=== PATIENT | female | born 1960 | race Caucasian/White ===

== ENCOUNTER 2024-05-12 15:59 | Inpatient (IN) | payer MEDICARE, MEDICAID, SELFPAY ==
[2024-05-12] VITALS (7 sets, daily range): BP systolic 103–139; BP diastolic 51–69; PULSE 94–125; RESP 18–24; TEMP 36.9–37.1; O2SAT 89–100; BMI 19.8; BMI 19.7
--- NOTE | 2024-05-12 16:49 | CT_ITS ---
PROCEDURE INFORMATION: Exam: CTA Chest With Contrast Exam date and time: 05/12/2024 5:58 PM Age: 63 years old Clinical indication: Injury or trauma; Fall; Blunt trauma (contusions or hematomas); Additional info: Trauma, critical injury suspected TECHNIQUE: Imaging protocol: Computed tomographic angiography of the chest with contrast. Exam focused on the arteries. 3D rendering (Not supervised by radiologist): MIP and/or 3D reconstructed images were created by the technologist. Radiation optimization: All CT scans at this facility use at least one of these dose optimization techniques: automated exposure control; mA and/or kV adjustment per patient size (includes targeted exams where dose is matched to clinical indication); or iterative reconstruction. Contrast material: ISOVUE 370; Contrast volume: 100 ml; Contrast route: INTRAVENOUS (IV); COMPARISON: CT ANGIO ABDOMEN PELVIS 05/12/2024 5:58 PM FINDINGS: Pulmonary arteries: Dilated pulmonary trunk measuring 3.2 cm which may be seen with pulmonary arterial hypertension. Breathing motion artifact limiting evaluation of segmental and subsegmental pulmonary arteries within the mid to lower lungs. Within the limits of the exam, no identifiable pulmonary arterial emboli. Aorta: Mild atherosclerosis. No aortic aneurysm. No aortic dissection. Lungs: Mild emphysema. Mild scattered peribronchovascular opacities within the right lung. No masses. Pleural spaces: Unremarkable. No pneumothorax. No pleural effusion. Heart: Cardiomegaly. Minimal pericardial effusion. Lymph nodes: Calcified subcarinal and right hilar lymph nodes. Bones/joints: Multiple old thoracic compression fractures better characterized on dedicated CT thoracic spine. Remaining bones without acute findings. Old left-sided rib fractures. Subacute or chronic proximal sternal body fracture Soft tissues: Unremarkable. IMPRESSION: 1. No acute posttraumatic findings within the chest. 2. Mild scattered peribronchovascular opacities within the right lung which may be seen with infectious or inflammatory bronchiolitis. 3. Subacute or chronic proximal sternal body fracture. Old thoracic compression fractures and left-sided rib fractures. COMMENTS: The presence of pulmonary emphysema on CT is an independent risk factor for lung cancer. In the absence of a history or active diagnosis of lung cancer, it is recommended that this patient with emphysema be evaluated for enrollment in a low dose CT lung cancer screening program.
--- NOTE | 2024-05-12 16:49 | CT_ITS ---
PROCEDURE INFORMATION: Exam: CT Cervical Spine Without Contrast Exam date and time: 05/12/2024 5:36 PM Age: 63 years old Clinical indication: Injury or trauma; Fall; Blunt trauma; Additional info: Trauma, critical injury suspected TECHNIQUE: Imaging protocol: Computed tomography of the cervical spine without contrast. Radiation optimization: All CT scans at this facility use at least one of these dose optimization techniques: automated exposure control; mA and/or kV adjustment per patient size (includes targeted exams where dose is matched to clinical indication); or iterative reconstruction. COMPARISON: CT HEAD/BRAIN WO CON 05/12/2024 5:33 PM FINDINGS: Bones: Osteopenia. Mild hypertrophic facet changes. Mastoid air cells: Left mastoiditis. Lungs: Lung apices are normal. Soft tissues: Unremarkable. IMPRESSION: 1. No evidence of acute osseous injury. 2. Left mastoiditis.
--- NOTE | 2024-05-12 16:49 | CT_ITS ---
PROCEDURE INFORMATION: Exam: CTA Neck With Contrast Exam date and time: 05/12/2024 5:50 PM Age: 63 years old Clinical indication: Injury or trauma; Fall; Blunt trauma; Head and neck; Additional info: Trauma, critical injury suspected TECHNIQUE: Imaging protocol: Computed tomographic angiography of the neck with contrast. Exam focused on the cervical segments of the vasculature. 3D rendering (Not supervised by radiologist): MIP and/or 3D reconstructed images were created by the technologist. Radiation optimization: All CT scans at this facility use at least one of these dose optimization techniques: automated exposure control; mA and/or kV adjustment per patient size (includes targeted exams where dose is matched to clinical indication); or iterative reconstruction. Contrast material: ISOVUE 370; Contrast volume: 100 ml; Contrast route: INTRAVENOUS (IV); COMPARISON: CT CERVICAL SPINE WO CON 05/12/2024 5:36 PM FINDINGS: Right common carotid artery: Mild calcific atherosclerotic disease of the right carotid bulb without stenosis. Right internal carotid artery: No stenosis of the extracranial segment. No dissection or occlusion. Right external carotid artery: No occlusion or stenosis of the origin. Left common carotid artery: Mild calcific atherosclerotic disease of the left carotid bulb without stenosis. Left internal carotid artery: No stenosis of the extracranial segment. No dissection or occlusion. Left external carotid artery: No occlusion or stenosis of the origin. Right vertebral artery: No stenosis. No dissection or occlusion. Left vertebral artery: No stenosis. No dissection or occlusion. Soft tissues: Normal. No significant soft tissue swelling. Bones/joints: No acute fracture. Lungs: Mild centrilobular emphysematous changes with an apical gradient is present. IMPRESSION: No stenosis or occlusion. REFERENCES: NASCET CRITERIA. The degree of stenosis in the cervical segment of the internal carotid artery is based on NASCET criteria. Normal is no stenosis. Mild is less than 50% stenosis. Moderate is 50-69% stenosis. Severe is 70% to 99% stenosis. Total occlusion is no detectable patent lumen.
--- NOTE | 2024-05-12 16:49 | CT_ITS ---
PROCEDURE INFORMATION: Exam: CT Thoracic Spine Without Contrast Exam date and time: 05/12/2024 5:40 PM Age: 63 years old Clinical indication: Injury or trauma; Fall; Blunt trauma (contusions or hematomas); Additional info: Trauma, critical injury suspected TECHNIQUE: Imaging protocol: Computed tomography of the thoracic spine without contrast. Radiation optimization: All CT scans at this facility use at least one of these dose optimization techniques: automated exposure control; mA and/or kV adjustment per patient size (includes targeted exams where dose is matched to clinical indication); or iterative reconstruction. COMPARISON: CT CERVICAL SPINE WO CON 05/12/2024 5:36 PM FINDINGS: Bones/joints: Chronic T7, T8 and T12 compression fractures with retropulsion measuring 3 mm at T7 and 6 mm at T12. Additional chronic appearing mild T3 and T4 superior endplate compression deformities. No acute fracture. Levoconvex curvature with the apex at T12-L1. Exaggerated thoracic hyperkyphosis centered at T11-12. Multilevel degenerative changes. No severe spinal canal stenosis. Soft tissues: Unremarkable. IMPRESSION: 1. No acute osseous findings of the thoracic spine. 2. Chronic T7, T8 and T12 compression fractures. Mild retropulsion at T7 and T12 contributing to mild spinal canal stenosis. Additional chronic appearing mild T3 and T4 superior endplate compression deformities.
--- NOTE | 2024-05-12 16:49 | CT_ITS ---
PROCEDURE INFORMATION: Exam: CT Lumbar Spine Without Contrast Exam date and time: 05/12/2024 5:45 PM Age: 63 years old Clinical indication: Injury or trauma; Fall; Blunt trauma (contusions or hematomas); Additional info: Trauma, critical injury suspected TECHNIQUE: Imaging protocol: Computed tomography of the lumbar spine without contrast. Radiation optimization: All CT scans at this facility use at least one of these dose optimization techniques: automated exposure control; mA and/or kV adjustment per patient size (includes targeted exams where dose is matched to clinical indication); or iterative reconstruction. COMPARISON: CT THORACIC SPINE WO CON 05/12/2024 5:40 PM FINDINGS: Bones/joints: Lumbar vertebrae normal in height. No acute fracture. Mild levoconvex curvature. Minimal degenerative changes. No significant neural foraminal narrowing or spinal canal stenosis. Soft tissues: Unremarkable. IMPRESSION: No acute osseous findings of the lumbar spine.
--- NOTE | 2024-05-12 16:49 | CT_ITS ---
PROCEDURE INFORMATION: Exam: CTA Abdomen and Pelvis With Contrast Exam date and time: 05/12/2024 5:58 PM Age: 63 years old Clinical indication: Injury or trauma; Fall; Blunt trauma; Lower abdominal or back area; Bilateral; Additional info: Trauma, critical injury suspected TECHNIQUE: Imaging protocol: Computed tomographic angiography of the abdomen and pelvis with contrast. Exam focused on the arteries. 3D rendering (Not supervised by radiologist): MIP and/or 3D reconstructed images were created by the technologist. Radiation optimization: All CT scans at this facility use at least one of these dose optimization techniques: automated exposure control; mA and/or kV adjustment per patient size (includes targeted exams where dose is matched to clinical indication); or iterative reconstruction. Contrast material: IOSVUE 370; Contrast volume: 100 ml; Contrast route: INTRAVENOUS (IV); COMPARISON: CT ANGIO CHEST 05/12/2024 5:58 PM FINDINGS: Aorta: [id number] atherosclerosis. No aortic aneurysm. No aortic dissection. Celiac trunk and mesenteric arteries: No occlusion or significant stenosis. Renal arteries: No occlusion or significant stenosis. Right iliac arteries: [id number] atherosclerosis. No occlusion or significant stenosis. Left iliac arteries: [id number] atherosclerosis. No occlusion or significant stenosis. Liver: Hepatomegaly No mass. Gallbladder and biliary ducts: Postsurgical changes of cholecystectomy with expected mild biliary ductal dilatation. Pancreas: Mild fatty infiltration. No mass. No ductal dilation. Spleen: Calcified granulomas. Splenomegaly. Adrenal glands: Unremarkable. No mass. Kidneys and ureters: Unremarkable. No solid mass. No hydronephrosis. Stomach and bowel: Moderate to large distal colonic and rectal stool burden which may be seen with constipation. No obstruction. No mucosal thickening. Appendix: No evidence of appendicitis. Intraperitoneal space: Unremarkable. No free air. No significant fluid collection. Lymph nodes: Unremarkable. No enlarged lymph nodes. Urinary bladder: Unremarkable. No mass. Reproductive: Unremarkable as visualized. Bones/joints: No acute fracture. See report on concurrently performed spine imaging. Soft tissues: Unremarkable. IMPRESSION: No acute posttraumatic findings within the abdomen or pelvis.
--- NOTE | 2024-05-12 16:49 | CT_ITS ---
PROCEDURE INFORMATION: Exam: CT Head Without Contrast Exam date and time: 05/12/2024 5:33 PM Age: 63 years old Clinical indication: Injury or trauma; Fall; Blunt trauma (contusions or hematomas); Additional info: Trauma, critical injury suspected TECHNIQUE: Imaging protocol: Computed tomography of the head without contrast. Radiation optimization: All CT scans at this facility use at least one of these dose optimization techniques: automated exposure control; mA and/or kV adjustment per patient size (includes targeted exams where dose is matched to clinical indication); or iterative reconstruction. COMPARISON: No relevant prior studies available. FINDINGS: Brain: Basal ganglia calcification Cerebral ventricles: No ventriculomegaly. Paranasal sinuses: Visualized sinuses are unremarkable. No fluid levels. Mastoid air cells: Visualized mastoid air cells are well aerated. Bones: Unremarkable. No acute fracture. Soft tissues: Unremarkable. IMPRESSION: No evidence of acute intracranial abnormality.
--- NOTE | 2024-05-12 16:49 | CT_ITS ---
PROCEDURE INFORMATION: Exam: CTA Head With Contrast, Arteriography Exam date and time: 05/12/2024 5:50 PM Age: 63 years old Clinical indication: Injury or trauma; Fall; Blunt trauma; Head and neck; Additional info: Trauma, critical injury suspected TECHNIQUE: Imaging protocol: Computed tomographic angiography of the head with contrast. Exam focused on the arteries. 3D rendering (Not supervised by radiologist): MIP and/or 3D reconstructed images were created by the technologist. Radiation optimization: All CT scans at this facility use at least one of these dose optimization techniques: automated exposure control; mA and/or kV adjustment per patient size (includes targeted exams where dose is matched to clinical indication); or iterative reconstruction. Contrast material: ISOVUE 370; Contrast volume: 100 ml; Contrast route: INTRAVENOUS (IV); COMPARISON: CT HEAD/BRAIN WO CON 05/12/2024 5:33 PM FINDINGS: ANTERIOR CIRCULATION: Right internal carotid artery: Mild calcific atherosclerotic disease of the right intracranial ICA resulting in moderate stenosis of the cavernous segment. Right middle cerebral artery: No occlusion or significant stenosis. No aneurysm. Right anterior cerebral artery: No occlusion or significant stenosis. No aneurysm. Left internal carotid artery: Moderate calcific atherosclerotic disease of the left intracranial ICA resulting in mild stenosis of the ophthalmic segment. Left middle cerebral artery: No occlusion or significant stenosis. No aneurysm. Left anterior cerebral artery: No occlusion or significant stenosis. No aneurysm. POSTERIOR CIRCULATION: Right vertebral artery: No occlusion or significant stenosis. No aneurysm. Left vertebral artery: No occlusion or significant stenosis. No aneurysm. Basilar artery: No occlusion or significant stenosis. No aneurysm. Right posterior cerebral artery: No occlusion or significant stenosis. No aneurysm. Left posterior cerebral artery: No occlusion or significant stenosis. No aneurysm. Brain: No definite mass, mass effect, or midline shift. Cerebral ventricles: No ventriculomegaly. Bones/joints: Unremarkable. No acute fracture. Soft tissues: Unremarkable. IMPRESSION: 1. 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 2. Moderate calcific atherosclerotic disease of the left intracranial ICA resulting in mild stenosis of the ophthalmic segment.
--- NOTE | 2024-05-12 16:52 | HMH.EDGENADL ---
Discharge Plan Disposition Patient Disposition: Admitted Referrals Follow up/Referrals: Hitesh Esparza DO [Primary Care Provider] - See instructions Clinical Impressions Clinical Impression: Altered mental status, Acute hypoxic respiratory failure, Multiple fractures of ribs, Falls frequently, Acute hyponatremia, Acute exacerbation of chronic obstructive pulmonary disease Instructions Patient Instructions: DI for Altered Mental Status Discharge ED Provider: Norberto [place] [facility] HPI General Chief complaint: Altered Mental Status Stated complaint: altered mental status Time Seen by Provider: 05/12/24 16:35 Mode of Arrival: EMS Source of Information: EMS Limitations: Altered Mental Status Description of Symptoms (Recalled from ER Triage Doc. by RN): confusion,lethargy,agitation,constipation History of Present Illness HPI narrative: Patient is a 63-year-old female presented with multiple complaints. She has a history of bipolar disorder has been off all medications for really extended period of time until she was admitted to [facility] about a month and a half ago. She was restarted on all of her medications has been on them for about a month and was discharged 1 week ago. She was doing very well according to her family members who are at the bedside until she fell 2 days ago. She went to [facility] was diagnosed with rib fractures and was discharged. She was given pain medicine unclear as to how many rib fractures she was diagnosed with or if she had any other traumatic injuries. She is not on any anticoagulants or antiplatelet agents to our knowledge. She subsequently over the last few days has had increased shortness of breath difficulty breathing changes in mental status went to her primary care doctor today was found to be hypoxic and lethargic and sent to the emergency department. She is arousable able to answer some questions tells me she has chest pain and left lateral chest wall pain. She has fallen subsequently according to her family again today and her mental status worsened after that time. She had some facial trauma from the fall as well. Related Data Allergies Allergy/AdvReac Type Severity Reaction Status Date / Time No Known Allergies Allergy Verified 05/12/24 17:21 [facility] Disclaimer: The information contained in this section may have been updated after the patient was seen, as this information can be updated by other users. Social History Smoking Status: Unknown if ever smoked alcohol intake: never current occupational status: other Travel in the last 8 weeks: None ROS Obtained: Yes All systems reviewed & no additional complaints except as documented Physical Exam General General appearance: alert and in no apparent distress Head Head exam: other (Evidence of facial trauma to the left frontal lateral aspect of the forehead) Neck Neck exam: Absent tenderness Chest Chest inspection: Present tenderness (There is significant tenderness with compression over the lateral chest wall) Respiratory Respiratory exam: Present other (Patient has prolonged expiratory phase wheezing hypoxic respiratory failure oxygen saturations 81% on room air normalized on 4 L) Cardiovascular Cardiovascular exam: Present regular rate Abdominal Exam Abdominal exam: Present soft; Absent distention or tenderness Neurological Exam Neurological exam: Present other (GCS of 14 arousable nonfocal neurologic exam disoriented to time); Absent alert or oriented X3 Medical Decision Making Tavon Inquiry Pt receiving controlled substance: No Tavon was queried for this patient: No Vital Signs: 05/12/24 15:59 05/12/24 16:06 05/12/24 16:30 Temperature 98.7 F Temperature Source Oral Pulse Rate 110 H 110 H Pulse Rate [Right] 125 H Respiratory Rate 24 Blood Pressure 109/60 L 116/51 L Blood Pressure [Right Arm] 109/60 L Blood Pressure Mean [Right Arm] 76 02 Sat by Pulse Oximetry 89 L 90 L 95 Oxygen Delivery Method Room Air Nasal Cannula Oxygen Flow Rate (LPM) 2 05/12/24 17:00 Temperature Temperature Source Pulse Rate 110 H Pulse Rate [Right] Respiratory Rate Blood Pressure 103/57 L Blood Pressure [Right Arm] Blood Pressure Mean [Right Arm] 02 Sat by Pulse Oximetry 92 L Oxygen Delivery Method Oxygen Flow Rate (LPM) Lab Data Lab results reviewed: Yes I reviewed the patient's lab results. Lab Results 05/12/24 16:01: WBC 19.3 H, RBC 3.90 L, Hgb 11.6 L, Hct 37.1, MCV 95.1, MCH 29.6, MCHC 31.1 L, RDW 16.7, Plt Count 233, MPV 7.6, Neut % (Auto) 90.0 H, Lymph % (Auto) 3.8 L, [place] % (Auto) 5.9, Eos % (Auto) 0.2, Baso % (Auto) 0.2, Neut # (Auto) 17.4 H, Lymph # (Auto) 0.7, [place] # (Auto) 1.1 H, Eos # (Auto) 0.0, Baso # (Auto) 0.0, Total Counted 100, Neutrophils % (Manual) 88 H, Lymphocytes % (Manual) 8 L, Monocytes % (Manual) 4, Platelet Estimate Normal, RBC Morphology Normal, PT 10.4, INR 0.96, APTT 28.0, Sodium 120 L, Potassium 4.9, Chloride 81 L, Carbon Dioxide 25, Anion Gap 18.9 H, BUN 36 H, Creatinine 1.50 H, Estimated Creat Clear 28, Estimated GFR 35 L, Est GFR ( Amer) 42 L, Glucose 140 H, Calcium 8.1 L, Total Bilirubin 0.5, AST 36, ALT 26, Alkaline Phosphatase 227 H, Troponin I < 0.01, Total Protein 7.2, Albumin 3.9, Globulin 3.3 H, Albumin/Globulin Ratio 1.2 05/12/24 16:10: Urine Color Dark yellow, Urine Appearance Clear, Urine pH 5.5, Ur Specific [place] 1.015, Urine Protein Negative, Urine Glucose (UA) Negative, Urine Ketones Trace, Urine Blood Negative, Urine Nitrate Negative, Urine Bilirubin 2+ A, Urine Urobilinogen 1.0, Ur Leukocyte Esterase Trace, Urine RBC None, Urine WBC Occasional, Ur Squamous Epith Cells Occasional, Urine Bacteria Trace 05/12/24 16:49: VBG Lactic Acid 1.7 05/12/24 16:50: VBG pH 7.32, VBG pCO2 49.9, VBG pO2 22.8 L, VBG HCO3 25.2, VBG Total CO2 26.8, VBG O2 Saturation 45.7 L, VBG Base Excess -0.8, VBG Lactic Acid 1.8 05/12/24 18:19: Ammonia < 9 L, SARS-CoV-2 (PCR) Not detected, Influenza A Untype (PCR) Not detected, Influenza Type B (PCR) Not detected 05/12/24 16:01 05/12/24 16:01 Orders (Tests/Meds): ED MEDICATIONS Discontinued Medications Generic Name Dose Route Start Last Admin Trade Name Freq PRN Reason Stop Dose Admin Albuterol/Ipratropium 3 ml 05/12/24 16:49 05/12/24 17:15 Ipratropium/Albuterol 3 Ml Neb IH 05/12/24 16:50 3 ml ONCE ONE Administration Lactated Ringer's 1,000 mls @ 999 mls/hr 05/12/24 17:00 05/12/24 18:16 Lactated Ringer's 1000 Ml Bag IV 05/12/24 18:00 999 mls/hr .Q1H1M SHAHRAM Administration Sodium Chloride 100 mls @ 999 mls/hr 05/12/24 17:56 05/12/24 18:42 Sod Chloride 3% 500ml Bag (Hypertonic) IV 05/12/24 18:01 999 mls/hr .Q6M ONE Administration Iopamidol 180 ml 05/12/24 18:06 05/12/24 18:08 Iopamidol-370 (76%);100ml Bottle IV 05/12/24 18:07 180 ml ONCE ONE Administration Methylprednisolone Sodium Succinate 125 mg 05/12/24 16:49 05/12/24 18:16 Methylprednisolone Sod Succ 125mg Vial IV 05/12/24 16:50 125 mg ONCE ONE Administration Sodium Chloride 10 ml 05/12/24 18:06 05/12/24 18:08 Sodium Chloride 0.9% 10ml Syr (Rad Only) IV 05/12/24 18:07 10 ml ONCE ONE Administration Sodium Chloride 50 ml 05/12/24 18:06 05/12/24 18:07 0.9 % Sodium Chloride 50 Ml Vial IV 05/12/24 18:07 50 ml ONCE ONE Administration ORDERS Category Date Time Status CT angio abdomen pelvis Stat Cat Scan 05/12/24 16:[address] angio chest - dissection Stat Cat Scan 05/12/24 16:[address] angio head Stat Cat Scan 05/12/24 16:[address] angio neck Stat Cat Scan 05/12/24 16:[address] cervical spine wo con Stat Cat Scan 05/12/24 16:[address] head/brain wo con Stat Cat Scan 05/12/24 16:[address] lumbar spine wo con Stat Cat Scan 05/12/24 16:[address] thoracic spine wo con Stat Cat Scan 05/12/24 16:49 Completed Ammonia Stat Lab 05/12/24 18:19 Completed CBC w/Auto Diff [Complete Blood Count Auto Diff] Stat Lab 05/12/24 16:01 Completed CMP [Comprehensive Metabolic Panel] Stat Lab 05/12/24 16:01 Completed Lactate Venous Stat Lab 05/12/24 16:49 Completed PT/PTT Stat Lab 05/12/24 16:01 Completed Rapid PCR Covid and Flu A/B Stat Lab 05/12/24 18:19 Completed Trop I [Troponin I] Stat Lab 05/12/24 16:01 Completed Troponin I Q3H Lab 05/12/24 20:00 Ordered Troponin I Q3H Lab 05/12/24 23:00 Ordered UA [Urinalysis and Microscopic] Stat Lab 05/12/24 16:10 Completed Blood Culture Stat Micro 05/12/24 16:10 Received Venous Blood Gas Stat RT 05/12/24 16:50 Completed Medical Decision Narrative: 63-year-old female presents today with multiple falls reported history of numerous rib fractures on the left side now with hypoxic respiratory failure and acute encephalopathy. Her change in mental status may be secondary to her new oxygen requirement and endorgan damage from possible sepsis. I suspect he may have underlying pneumonia or lung injury or pulmonary contusion with rib fractures will get full trauma scans as has fallen again and has had worsening of her mental status since that time intracranial hemorrhage certainly still on the possibility or differential. She does not have any significant pain or tenderness anywhere else on my assessment. However if she does not have a normal neurologic exam either. Will reassess after this brought and complains of workup is initiated. Reassessment 723 patient found to be profoundly hyponatremic was given hypertonic saline bolus and she has remained stable has not had any significant improvement will need continued hypertonic saline given her altered mental status. Sodium is 120. Unclear etiology at this point. CT scans performed which I first interpreted did not show any obvious traumatic abnormalities that are acute I do not see any obvious acute rib fractures may be some chronic old rib fractures and some chronic wedge fractures but she is not focally tender in that area. Overall think she is stable to be admitted to our hospital. I spoke with Dr. Ramos who is on-call for hospital medicine. She will be admitted for hypoxic respiratory failure hyponatremia probable COPD exacerbation and acute encephalopathy. Critical Care Critical Care Time Critical Care Time: Yes Attestation: On 05/12/24, the high probability of a clinically significant, sudden or life threatening deterioration of the following system(s) required my full and direct attention, intervention and personal management. The time I documented below is in addition to time spent performing reported procedures but includes the following listed in this critical care notation. Total Time Total Critical Care Time: 35
[2024-05-12 17:00] LABS: Basophils % 0.2 % (0.1-2.0); Eosinophils % 0.2 % (0.1-12.0); Hematocrit 37.1 % (37.0-47.0); Hemoglobin 11.6 g/dL (12.2-16.2); Lymphocytes # 0.7 K/mm3 (0.7-4.5); Lymphocytes % 3.8 % (10-50); Mean Corpuscular HGB Conc 31.1 g/dL (31.8-35.4); Mean Corpuscular Hemoglobin 29.6 pg (27.0-31.2); Mean Corpuscular Volume 95.1 fl (81-99); Mean Platelet Volume 7.6 fl (7.4-10.4); Monocytes # 1.1 K/mm3 (0.1-1.0); Monocytes % 5.9 % (1.7-9.3); Neutrophils # 17.4 K/mm3 (1.8-7.8); Platelet Count 233 K/mm3 (142-424); Red Cell Distribution Width 16.7 % (11.5-17.5); White Blood Count 19.3 K/mm3 (4.8-10.8)
[2024-05-12 17:04] LABS: Chloride 81 mmol/L (98-107); MANUAL DIFFERENTIAL MANUAL DIFFERENTIAL (MANUAL DIFF); Potassium 4.9 mmoL/L (3.5-5.1); Sodium 120 mmol/L (136-145)
[2024-05-12 17:06] LABS: INR 0.96 (0.9-1.1); Prothrombin Time 10.4 seconds (10.1-12.5)
[2024-05-12 17:07] LABS: Alanine Aminotransferase 26 U/L (12-78); Albumin Level 3.9 g/dl (3.5-5.0); Albumin/Globulin Ratio 1.2 (1.1-1.8); Alkaline Phosphatase 227 U/L (38-126); Anion Gap 18.9 mEq/L (5-15); Aspartate Amino Transferase 36 U/L (14-36); Bilirubin,Total 0.5 mg/dl (0.2-1.3); Blood Urea Nitrogen 36 mg/dl (7-17); Calcium 8.1 mg/dl (8.4-10.2); Carbon Dioxide 25 mmol/L (22.0-30.0); Creatinine Clearance Estimated 28 mL/min (50-200); Estimated Glomerular Filt Rate 35 ml/min (>60); GFR (African American) 42 ML/MIN (>60); Globulin 3.3 g/dL (1.3-3.2); Glucose 140 mg/dl (74-100); Total Protein,Serum 7.2 g/dl (6.3-8.2)
[2024-05-12 17:10] LABS: Microscopic, Urine URINE MICROSCOPIC (MICROSCOPIC)
[2024-05-12 17:11] LABS: Lactate Venous 1.8 mmol/L (0.4-2.0); VBG Base Excess -0.8 mmol/L (-2.4-2.3); VBG HCO3 25.2 mmol/L (23-30); VBG Oxygen Saturation 45.7 % (50-70); VBG PCO2 49.9 mmol/L (35-51); VBG PH 7.32 mmol/L (7.31-7.41); VBG PO2 22.8 mmol/L (28-40); VBG Total CO2 26.8 mmol/L (23-27)
[2024-05-12] MEDS: IPRATROPIUM/ALBUTEROL 3 ML NEB IH (17:15)
[2024-05-12 17:16] LABS: Appearance,Urine CLEAR (Clear); Blood, Urine Negative (Negative); Glucose,Urine (UA) Negative (Negative); Ketones,Urine TRACE (Negative); Leukocyte Esterase,Urine TRACE (Negative); Nitrate,Urine Negative (Negative); PH,Urine 5.5 (5.0-8.5); Protein,Urine Negative (Negative); Specific Gravity, Urine 1.015 (1.005-1.030)
[2024-05-12 17:21] LABS: Bilirubin,Urine 2+ (Negative)
[2024-05-12 17:21] LABS: Troponin I < 0.01 ng/ml (0.00-0.034)
--- NOTE | 2024-05-12 17:23 | ECG_ITS ---
APPROVED REPORT Exam: Resting ECG HR:107 bpm ECG Measurements Heart Rate 107 AXES IL 189 P 93 QRSd 83 QRS 53 QT 306 T 114 QTc 369 Conclusion SINUS TACHYCARDIA WITH OCCASIONAL SUPRAVENTRICULAR PREMATURE COMPLEXES LOW QRS VOLTAGE IN EXTREMITY LEADS [QRS DEFLECTION < 0.5 mV IN LIMB LEADS] ABNORMAL QRS-T ANGLE [QRS-T AXIS DIFFERENCE > 60] ABNORMAL ECG UNCONFIRMED REPORT Electronically signed by : Zay [place], 05/13/2024 00:21:47
[2024-05-12 17:29] LABS: Lymphocytes % 8 % (10-50); Monocytes % 4 % (2-9); Neutrophils % 88 % (42-76); Total Cells Counted 100
[2024-05-12 17:31] LABS: Color,Urine Dark Yellow (Yellow); Squamous Epithelial Cell,Urine Occasional #/hpf (0-5); WBC,Urine Occasional #/hpf (0-3)
[2024-05-12 17:31] LABS: Platelet Estimate Normal; RBC Morphology Normal
[2024-05-12 17:32] LABS: Bacteria,Urine Trace /lpf
[2024-05-12] MEDS: 0.9 % SODIUM CHLORIDE 50 ML VIAL IV (18:07)
[2024-05-12] MEDS: IOPAMIDOL-370 (76%);100ML BOTTLE 180 ML IV (18:08)
[2024-05-12] MEDS: SODIUM CHLORIDE 0.9% 10ML SYR (RAD ONLY) 10 ML IV (18:08)
[2024-05-12] MEDS: LACTATED RINGERS 1000ML 1,000 ML 999 ML IV (18:16)
[2024-05-12] MEDS: METHYLPREDNISOLONE SOD SUCC 125MG VIAL 125 MG IV (18:16)
[2024-05-12 18:26] LABS: Coronavirus 19, PCR Not Detected (NotDetected); Influenza A, PCR Not Detected (NotDetected); Influenza B, PCR Not Detected (NotDetected)
[2024-05-12 18:27] LABS: Lactate Venous 1.7 mmol/L (0.4-2.0)
[2024-05-12] MEDS: SODIUM CHLORIDE 3 % 100 ML 999 ML IV (18:42)
[2024-05-12 18:47] LABS: Ammonia < 9 umol/L (9-30)
--- NOTE | 2024-05-12 19:49 | PC.NURSE ---
Report given to JAVIER Richter
--- NOTE | 2024-05-12 20:21 | PC.NURSE ---
Patient arrived to floor via stretcher from ED at 20:10.
[2024-05-12] MEDS: BISACODYL 10MG SUPP 10 MG RC (20:47)
[2024-05-12 20:55] LABS: Basophils % 0.1 % (0.1-2.0); Eosinophils # 0.1 K/mm3 (0.0-0.4); Eosinophils % 0.4 % (0.1-12.0); Hematocrit 33.5 % (37.0-47.0); Hemoglobin 10.5 g/dL (12.2-16.2); Lymphocytes # 0.3 K/mm3 (0.7-4.5); Lymphocytes % 2.6 % (10-50); Mean Corpuscular HGB Conc 31.5 g/dL (31.8-35.4); Mean Corpuscular Hemoglobin 30.5 pg (27.0-31.2); Mean Platelet Volume 7.1 fl (7.4-10.4); Monocytes # 0.3 K/mm3 (0.1-1.0); Monocytes % 2.7 % (1.7-9.3); Neutrophils # 11.5 K/mm3 (1.8-7.8); Neutrophils % 94.2 % (37.0-80.0); Platelet Count 153 K/mm3 (142-424); Red Blood Count 3.45 M/mm3 (4.20-5.40); Red Cell Distribution Width 16.6 % (11.5-17.5); White Blood Count 12.2 K/mm3 (4.8-10.8)
[2024-05-12 21:00] LABS: Chloride 89 mmol/L (98-107); Potassium 4.3 mmoL/L (3.5-5.1); Sodium 122 mmol/L (136-145)
[2024-05-12 21:03] LABS: Alanine Aminotransferase 25 U/L (12-78); Alkaline Phosphatase 205 U/L (38-126); Anion Gap 15.3 mEq/L (5-15); Aspartate Amino Transferase 34 U/L (14-36); Bilirubin,Total 0.5 mg/dl (0.2-1.3); Blood Urea Nitrogen 28 mg/dl (7-17); Calcium 7.5 mg/dl (8.4-10.2); Carbon Dioxide 22 mmol/L (22.0-30.0); Creatinine Clearance Estimated 42 mL/min (50-200); Estimated Glomerular Filt Rate 63 ml/min (>60); GFR (African American) 76 ML/MIN (>60); Glucose 145 mg/dl (74-100)
[2024-05-12 21:04] LABS: Albumin Level 3.7 g/dl (3.5-5.0); Albumin/Globulin Ratio 1.3 (1.1-1.8); Globulin 2.8 g/dL (1.3-3.2); Total Protein,Serum 6.5 g/dl (6.3-8.2)
[2024-05-12 21:17] LABS: Troponin I < 0.01 ng/ml (0.00-0.034)
[2024-05-12 23:31] LABS: Troponin I < 0.01 ng/ml (0.00-0.034)
[2024-05-13] VITALS (17 sets, daily range): BP systolic 113–146; BP diastolic 52–69; PULSE 88–119; RESP 18–24; TEMP 36.4–37; O2SAT 3–100; BMI 19.7
[2024-05-13] MEDS: SODIUM PHOS/BIPHOSPHATE FLEET 133ML ENEMA 133 ML RC (00:30)
--- NOTE | 2024-05-13 01:02 | EXP.HP ---
[facility] Disclaimer: The information contained in this section may have been updated after the patient was seen, as this information can be updated by other users. Medical History Seasonal allergies COPD (chronic obstructive pulmonary disease) GERD (gastroesophageal reflux disease) High cholesterol Bipolar 1 disorder Hypertension Social History (Updated 05/12/24 @ 19:24 by Norberto [place] MD) Smoking Status: Unknown if ever smoked alcohol intake: never current occupational status: other Travel in the last 8 weeks: None Meds Home Medications and Allergies Home Medications Medication Instructions Recorded Confirmed Type albuterol 90 mcg/actuation aerosol 90 mcg inhalation Q6 PRN soa 05/12/24 05/12/24 History inhaler atorvastatin 10 mg tablet 10 mg PO DAILY 05/12/24 05/12/24 History cetirizine 10 mg tablet 10 mg PO DAILY 05/12/24 05/12/24 History divalproex 500 mg tablet,delayed 500 mg PO BID 05/12/24 05/12/24 History release ibuprofen 600 mg tablet 600 mg PO BID 05/12/24 05/12/24 History lisinopril 40 mg tablet 40 mg PO DAILY 05/12/24 05/12/24 History omeprazole 20 mg capsule,delayed 20 mg PO DAILY 05/12/24 05/12/24 History release potassium chloride 10 mEq 10 meq PO DAILY 05/12/24 05/12/24 History tablet,extended release risperidone 2 mg tablet (Risperdal) 2 mg PO BID 05/12/24 05/12/24 History tramadol 50 mg tablet 50 mg PO BID PRN Pain 05/12/24 05/12/24 History New Prescriptions to Start Prescriptions: Allergies Allergy/AdvReac Type Severity Reaction Status Date / Time No Known Allergies Allergy Verified 05/12/24 17:21 Exam Data for Last 24 hours Vital signs and Labs for Last 24 Hours: Temp Pulse Resp BP Pulse Ox O2 Del Method O2 Flow Rate 98.4 F 94 H 18 139/69 100 Nasal Cannula 3 05/12/24 20:00 05/12/24 23:53 05/12/24 20:00 05/12/24 20:00 05/12/24 23:53 05/12/24 23:53 05/12/24 23:53 Laboratory Results - last 24 hr 05/12/24 16:01: WBC 19.3 H, RBC 3.90 L, Hgb 11.6 L, Hct 37.1, MCV 95.1, MCH 29.6, MCHC 31.1 L, RDW 16.7, Plt Count 233, MPV 7.6, Neut % (Auto) 90.0 H, Lymph % (Auto) 3.8 L, [place] % (Auto) 5.9, Eos % (Auto) 0.2, Baso % (Auto) 0.2, Neut # (Auto) 17.4 H, Lymph # (Auto) 0.7, [place] # (Auto) 1.1 H, Eos # (Auto) 0.0, Baso # (Auto) 0.0, Total Counted 100, Neutrophils % (Manual) 88 H, Lymphocytes % (Manual) 8 L, Monocytes % (Manual) 4, Platelet Estimate Normal, RBC Morphology Normal, PT 10.4, INR 0.96, APTT 28.0, Sodium 120 L, Potassium 4.9, Chloride 81 L, Carbon Dioxide 25, Anion Gap 18.9 H, BUN 36 H, Creatinine 1.50 H, Estimated Creat Clear 28, Estimated GFR 35 L, Est GFR ( Amer) 42 L, Glucose 140 H, Calcium 8.1 L, Total Bilirubin 0.5, AST 36, ALT 26, Alkaline Phosphatase 227 H, Troponin I < 0.01, Total Protein 7.2, Albumin 3.9, Globulin 3.3 H, Albumin/Globulin Ratio 1.2 05/12/24 16:10: Urine Color Dark yellow, Urine Appearance Clear, Urine pH 5.5, Ur Specific [place] 1.015, Urine Protein Negative, Urine Glucose (UA) Negative, Urine Ketones Trace, Urine Blood Negative, Urine Nitrate Negative, Urine Bilirubin 2+ A, Urine Urobilinogen 1.0, Ur Leukocyte Esterase Trace, Urine RBC None, Urine WBC Occasional, Ur Squamous Epith Cells Occasional, Urine Bacteria Trace 05/12/24 16:49: VBG Lactic Acid 1.7 05/12/24 16:50: VBG pH 7.32, VBG pCO2 49.9, VBG pO2 22.8 L, VBG HCO3 25.2, VBG Total CO2 26.8, VBG O2 Saturation 45.7 L, VBG Base Excess -0.8, VBG Lactic Acid 1.8 05/12/24 18:19: Ammonia < 9 L, SARS-CoV-2 (PCR) Not detected, Influenza A Untype (PCR) Not detected, Influenza Type B (PCR) Not detected 05/12/24 20:40: WBC 12.2 H D, RBC 3.45 L, Hgb 10.5 L, Hct 33.5 L, MCV 97.0, MCH 30.5, MCHC 31.5 L, RDW 16.6, Plt Count 153 D, MPV 7.1 L, Neut % (Auto) 94.2 H, Lymph % (Auto) 2.6 L, [place] % (Auto) 2.7, Eos % (Auto) 0.4, Baso % (Auto) 0.1, Neut # (Auto) 11.5 H, Lymph # (Auto) 0.3 L, [place] # (Auto) 0.3, Eos # (Auto) 0.1, Baso # (Auto) 0.0, Sodium 122 L, Potassium 4.3, Chloride 89 L, Carbon Dioxide 22, Anion Gap 15.3 H, BUN 28 H, Creatinine 0.90 D, Estimated Creat Clear 42, Estimated GFR 63, Est GFR ( Amer) 76 D, Glucose 145 H, Calcium 7.5 L, Total Bilirubin 0.5, AST 34, ALT 25, Alkaline Phosphatase 205 H, Troponin I < 0.01, Total Protein 6.5, Albumin 3.7, Globulin 2.8, Albumin/Globulin Ratio 1.3 05/12/24 23:05: Troponin I < 0.01 I & O for Last 24 hours: Intake & Output 05/10/24 05/11/24 05/12/24 05/13/24 23:59 23:59 23:59 23:59 Output Total 0 / 0 Balance 0 / 0 Weight 47.446 kg H&P: Result Imaging and Cardiology CT scan - chest: Additional comments: Noted for emphysema of the lungs CT scan - head: Additional comments: No acute findings mild vascular deficits noted as per written report Assessment and Plan *Assessment and plan (1) Acute exacerbation of chronic obstructive pulmonary disease: Status: Acute Category: Medical Code(s): J44.1 - Chronic obstructive pulmonary disease with (acute) exacerbation (2) Acute hyponatremia: Status: Acute Category: Medical Code(s): E87.1 - Hypo-osmolality and hyponatremia (3) Falls frequently: Status: Acute Category: Medical Code(s): R29.6 - Repeated falls (4) Multiple fractures of ribs: Status: Acute Category: Medical Code(s): S22.49XA - Multiple fractures of ribs, unspecified side, initial encounter for closed fracture (5) Acute hypoxic respiratory failure: Status: Acute Category: Medical Code(s): J96.01 - Acute respiratory failure with hypoxia (6) Altered mental status: Status: Acute Category: Medical Code(s): R41.82 - Altered mental status, unspecified
--- NOTE | 2024-05-13 01:03 | EXP.HP ---
History of Present Illness *Admission Date: 05/12/24 *Reason for visit:: Acute exacerbation of COPD with hypoxia and altered mental status with inab *History of present illness: This patient had been admitted to [facility] for more than a month. Recently released within the last week. Began to have periods of falling down. Started smoking large amounts of cigarettes after release. Ended up in emergency room given hydrocodone 12 of them that were all taken within 24 hours. Family is unable to care for her and she is terribly constipated [facility] Disclaimer: The information contained in this section may have been updated after the patient was seen, as this information can be updated by other users. Medical History Seasonal allergies COPD (chronic obstructive pulmonary disease) GERD (gastroesophageal reflux disease) High cholesterol Bipolar 1 disorder Hypertension Social History Smoking Status: Unknown if ever smoked alcohol intake: never current occupational status: other Travel in the last 8 weeks: None Review of Systems Review of Systems Review of systems:: unable to obtain Review of systems (narrative): Patient is not a good historian sleeping most of the time., Most of history obtained from daughter who was unsure of exact this of her information as a lot of it was from third parties. Constitutional Constitutional: Reports body ache(s), Reports frequent falls and Reports malaise Eyes Eyes: Reports system reviewed and no additional complaints, except as documented ENT Ears, Nose, Mouth, and Throat: Reports system reviewed and no additional complaints, except as documented, Reports as per HPI and Reports disequilibrium *Cardiovascular Cardiovascular: Reports dyspnea *Respiratory Respiratory: Reports chest congestion, Reports cough, Reports dyspnea and Reports wheezing *Gastrointestinal Gastrointestinal: Reports abdominal pain and Reports change in stool character Comments: Patient has been complaining of not being able to have a bowel movement, underlying still is not in pain but when abdomen is touched having pain *Genitourinary Genitourinary: Reports system reviewed and no additional complaints, except as documented and Reports as per HPI *Musculoskeletal Musculoskeletal: Reports abnormal gait Comments: History of falling several times Integumentary/Breasts Skin/Breast: Reports system reviewed and no additional complaints, except as documented *Neurologic Neurologic: Reports abnormal gait, Reports behavioral changes, Reports confusion, Reports disequilibrium and Reports frequent falls Psychiatric Psychiatric: Reports anxiety, Reports behavioral changes, Reports confusion and Reports mood swings Comments: Per history patient becomes agitated starts yelling and screaming about things Endocrine Endocrine: Reports as per HPI Hematologic/Lymphatic Hematologic/Lymphatic: Reports as per HPI Allergic/Immunologic Allergic/Immunologic: Reports wheezing Meds Home Medications and Allergies Home Medications Medication Instructions Recorded Confirmed Type atorvastatin 10 mg tablet 10 mg PO DAILY 05/12/24 05/12/24 History divalproex 500 mg tablet,delayed 500 mg PO BID 05/12/24 05/12/24 History release lisinopril 40 mg tablet 40 mg PO DAILY 05/12/24 05/12/24 History omeprazole 20 mg capsule,delayed 20 mg PO DAILY 05/12/24 05/12/24 History release potassium chloride 10 mEq 10 meq PO DAILY 05/12/24 05/12/24 History tablet,extended release risperidone 2 mg tablet (Risperdal) 2 mg PO BID 05/12/24 05/12/24 History tramadol 50 mg tablet 50 mg PO BIDP PRN Pain 05/12/24 05/13/24 History albuterol sulfate 90 mcg/actuation 2 inh inhalation Q6HP PRN SOA 05/13/24 05/13/24 History aerosol inhaler New Prescriptions to Start Prescriptions: Allergies Allergy/AdvReac Type Severity Reaction Status Date / Time No Known Allergies Allergy Verified 05/12/24 17:21 Exam Data for Last 24 hours Vital signs and Labs for Last 24 Hours: Temp Pulse Resp BP Pulse Ox O2 Del Method O2 Flow Rate 98.4 F 94 H 18 139/69 100 Nasal Cannula 3 05/12/24 20:00 05/12/24 23:53 05/12/24 20:00 05/12/24 20:00 05/12/24 23:53 05/12/24 23:53 05/12/24 23:53 Laboratory Results - last 24 hr 05/12/24 16:01: WBC 19.3 H, RBC 3.90 L, Hgb 11.6 L, Hct 37.1, MCV 95.1, MCH 29.6, MCHC 31.1 L, RDW 16.7, Plt Count 233, MPV 7.6, Neut % (Auto) 90.0 H, Lymph % (Auto) 3.8 L, [place] % (Auto) 5.9, Eos % (Auto) 0.2, Baso % (Auto) 0.2, Neut # (Auto) 17.4 H, Lymph # (Auto) 0.7, [place] # (Auto) 1.1 H, Eos # (Auto) 0.0, Baso # (Auto) 0.0, Total Counted 100, Neutrophils % (Manual) 88 H, Lymphocytes % (Manual) 8 L, Monocytes % (Manual) 4, Platelet Estimate Normal, RBC Morphology Normal, PT 10.4, INR 0.96, APTT 28.0, Sodium 120 L, Potassium 4.9, Chloride 81 L, Carbon Dioxide 25, Anion Gap 18.9 H, BUN 36 H, Creatinine 1.50 H, Estimated Creat Clear 28, Estimated GFR 35 L, Est GFR ( Amer) 42 L, Glucose 140 H, Calcium 8.1 L, Total Bilirubin 0.5, AST 36, ALT 26, Alkaline Phosphatase 227 H, Troponin I < 0.01, Total Protein 7.2, Albumin 3.9, Globulin 3.3 H, Albumin/Globulin Ratio 1.2 05/12/24 16:10: Urine Color Dark yellow, Urine Appearance Clear, Urine pH 5.5, Ur Specific [place] 1.015, Urine Protein Negative, Urine Glucose (UA) Negative, Urine Ketones Trace, Urine Blood Negative, Urine Nitrate Negative, Urine Bilirubin 2+ A, Urine Urobilinogen 1.0, Ur Leukocyte Esterase Trace, Urine RBC None, Urine WBC Occasional, Ur Squamous Epith Cells Occasional, Urine Bacteria Trace 05/12/24 16:49: VBG Lactic Acid 1.7 05/12/24 16:50: VBG pH 7.32, VBG pCO2 49.9, VBG pO2 22.8 L, VBG HCO3 25.2, VBG Total CO2 26.8, VBG O2 Saturation 45.7 L, VBG Base Excess -0.8, VBG Lactic Acid 1.8 05/12/24 18:19: Ammonia < 9 L, SARS-CoV-2 (PCR) Not detected, Influenza A Untype (PCR) Not detected, Influenza Type B (PCR) Not detected 05/12/24 20:40: WBC 12.2 H D, RBC 3.45 L, Hgb 10.5 L, Hct 33.5 L, MCV 97.0, MCH 30.5, MCHC 31.5 L, RDW 16.6, Plt Count 153 D, MPV 7.1 L, Neut % (Auto) 94.2 H, Lymph % (Auto) 2.6 L, [place] % (Auto) 2.7, Eos % (Auto) 0.4, Baso % (Auto) 0.1, Neut # (Auto) 11.5 H, Lymph # (Auto) 0.3 L, [place] # (Auto) 0.3, Eos # (Auto) 0.1, Baso # (Auto) 0.0, Sodium 122 L, Potassium 4.3, Chloride 89 L, Carbon Dioxide 22, Anion Gap 15.3 H, BUN 28 H, Creatinine 0.90 D, Estimated Creat Clear 42, Estimated GFR 63, Est GFR ( Amer) 76 D, Glucose 145 H, Calcium 7.5 L, Total Bilirubin 0.5, AST 34, ALT 25, Alkaline Phosphatase 205 H, Troponin I < 0.01, Total Protein 6.5, Albumin 3.7, Globulin 2.8, Albumin/Globulin Ratio 1.3 05/12/24 23:05: Troponin I < 0.01 I & O for Last 24 hours: Intake & Output 05/10/24 05/11/24 05/12/24 05/13/24 23:59 23:59 23:59 23:59 Output Total 0 / 0 Balance 0 / 0 Weight 47.446 kg Radiology Reports for the Last 24 Hours: No acute fractures noted large amounts of constipation. And emphysema in the lungs Constitutional Constitutional: moderate distress, agitated and somnolent Comments: Patient went first thing *Routine HEENT Exam Head: Present normocephalic and atraumatic Eye: Present EOMI and PERRL ENT: Present mucous membranes moist *Routine Neck Exam Neck: Present supple and full ROM Routine Chest/Breast/Axilla Exam Comments: not done *Routine Respiratory Exam Respiratory: Present prolonged expiratory phase, respiratory distress, wheezes and diminished air movement *Routine Cardiovascular Exam Cardiovascular: Present RRR and tachycardia *Routine Abdominal Exam Abdominal: Present tenderness, rebound and other Comments: Large amounts of stool per abdominal CT *Routine Rectal Exam Rectal:: deferred *Routine Genitalia Exam Genitalia:: deferred *Routine Extremities Exam Extremities: Present tenderness Comments: No acute sign of extremity injuries but patient needed help to get to bedside commode Routine Back/Spine/Pelvis Exam Back/Spine: Present full ROM *Routine Skin Exam Skin: Present intact *Routine Neurological Exam Neurological: Present alert, CN II-XII intact, altered mental status, hearing grossly intact and normal speech Comments: At times patient is quite somnolent does not answer questions well other times she seems to be wide-awake voice is clear able to answer questions without hesitation Routine Psychiatric Exam Psychiatric: Present depressed and manic H&P: Result Impressions 1. Bipolar, question how did medicines were taken and if this was causing her to be oversedated falling. Having mood swings per family but was found to have extreme apraxia when went to new primary care today. Unsure of hypoxia because may be oversedation related to medication as CT scan did not show any significant deficit Imaging and Cardiology CT scan - chest: Status: final report Additional comments: Noted for emphysema of the lungs CT scan - head: Status: image reviewed by me and final report Additional comments: No acute findings mild vascular deficits noted as per written report Assessment and Plan *Assessment and plan (1) Acute hypoxic respiratory failure: Status: Acute Category: Medical Code(s): J96.01 - Acute respiratory failure with hypoxia (2) Acute exacerbation of chronic obstructive pulmonary disease: Status: Acute Category: Medical Code(s): J44.1 - Chronic obstructive pulmonary disease with (acute) exacerbation (3) Altered mental status: Status: Acute Category: Medical Code(s): R41.82 - Altered mental status, unspecified (4) Acute hyponatremia: Status: Acute Category: Medical Code(s): E87.1 - Hypo-osmolality and hyponatremia (5) Falls frequently: Status: Acute Category: Medical Code(s): R29.6 - Repeated falls (6) Multiple fractures of ribs: Status: Acute Category: Medical Code(s): S22.49XA - Multiple fractures of ribs, unspecified side, initial encounter for closed fracture Plan 63-year-old female who presented to the ER with altered mental status. Recent admission to [facility] with new psych meds initiated. Had a fall recently as well with addition of hydrocodone. Took significant doses in a very short period of time. Discussed case with ER physician, request admission for treatment of her encephalopathy, new oxygen requirement, concern for COPD exacerbation. Agreed to admit for further management. Aggressive bowel regimen initiated over night. Holding pain medications. Monitor for improvement in mentation. Problems addressed as follows: acute hypoxemic respiratory failure secondary to COPD exacerbation -Chest imaging personally reviewed, no focal consolidation. peribronchial opacities concerning for bronchitis or infection. -Initiate ceftriaxone 1 g IV daily -Supplemental oxygen as needed, goal sats greater 90%. Currently on 2 L -DuoNebs every 6 hours scheduled with as needed available -Received steroids in the ER -I have ordered CBC, CMP, magnesium for the morning. - White count 19.3 - Hypoxic to 80 on presentation on room air Encephalopathy -Concerning for toxic versus metabolic. In the setting of hypoxia as well as polypharmacy -Holding opiates/pain medication -Resume psych meds -Monitor for improvement with treatment of underlying infection and adjustments of medications Constipation -Severe constipation per my review of abdominal CT. Aggressive bowel meant with docusate and senna, MiraLAX. Schizophrenia -Recent inpatient admission to [facility]. Started on divalproex 500 mg twice daily and Risperdal 2 mg twice daily. Will continue medications. -Has outpatient follow-up with psychiatry scheduled on Wednesday Hypertension: Stable, continue lisinopril 40 mill grams daily Hyperlipidemia: Continue Lipitor 10 mg daily Tobacco use disorder: Nicotine patch daily as needed Full code Regular diet Rounded on patient after nurse practitioner. Personally examined and interviewed patient. Agree with exam findings and care plan as documented.
[2024-05-13] MEDS: BISACODYL 10MG SUPP 10 MG RC (06:08)
[2024-05-13] MEDS: IPRATROPIUM/ALBUTEROL 3 ML NEB IH ×4 (06:25→23:16)
--- NOTE | 2024-05-13 06:50 | PC.NURSE ---
pt alert to name and place, confused. pt received 1 supp and 1 enema with small results, provider made aware. an additional supp ordered and given. vss, st on monitor. sepsis screen is positive. provider made aware.
[2024-05-13 08:21] LABS: Basophils % 0.1 % (0.1-2.0); Chloride 92 mmol/L (98-107); Hematocrit 32.1 % (37.0-47.0); Hemoglobin 10.2 g/dL (12.2-16.2); Lymphocytes # 0.5 K/mm3 (0.7-4.5); Lymphocytes % 3.1 % (10-50); Mean Corpuscular HGB Conc 31.9 g/dL (31.8-35.4); Mean Corpuscular Hemoglobin 30.1 pg (27.0-31.2); Mean Corpuscular Volume 94.4 fl (81-99); Mean Platelet Volume 8.1 fl (7.4-10.4); Monocytes # 0.5 K/mm3 (0.1-1.0); Monocytes % 3.2 % (1.7-9.3); Neutrophils # 13.7 K/mm3 (1.8-7.8); Neutrophils % 93.5 % (37.0-80.0); Platelet Count 184 K/mm3 (142-424); Sodium 126 mmol/L (136-145); White Blood Count 14.7 K/mm3 (4.8-10.8)
[2024-05-13 08:24] LABS: Alanine Aminotransferase 21 U/L (12-78); Albumin Level 3.3 g/dl (3.5-5.0); Albumin/Globulin Ratio 1.2 (1.1-1.8); Alkaline Phosphatase 171 U/L (38-126); Aspartate Amino Transferase 34 U/L (14-36); Bilirubin,Total 0.4 mg/dl (0.2-1.3); Blood Urea Nitrogen 24 mg/dl (7-17); Carbon Dioxide 29 mmol/L (22.0-30.0); Creatinine Clearance Estimated 42 mL/min (50-200); Estimated Glomerular Filt Rate 124 ml/min (>60); GFR (African American) 150 ML/MIN (>60); Globulin 2.8 g/dL (1.3-3.2); Total Protein,Serum 6.1 g/dl (6.3-8.2)
[2024-05-13 08:25] LABS: Calcium 8.1 mg/dl (8.4-10.2); Glucose 112 mg/dl (74-100)
[2024-05-13 08:39] LABS: MANUAL DIFFERENTIAL MANUAL DIFFERENTIAL (MANUAL DIFF)
[2024-05-13] MEDS: DOCUSATE SODIUM 100 MG CAPSULE PO (08:55)
[2024-05-13] MEDS: ATORVASTATIN 10MG TABLET 10 MG PO (08:55)
[2024-05-13] MEDS: PANTOPRAZOLE 40MG TABLET 40 MG PO (08:55)
[2024-05-13] MEDS: DIVALPROEX 500MG (Delayed-Release) TABLET 500 MG PO ×2 (08:55→20:51)
[2024-05-13] MEDS: risperiDONE 1MG TABLET 2 MG PO ×2 (08:55→20:51)
[2024-05-13] MEDS: POTASSIUM CHLORIDE 10MEQ TABLET.ER 10 MEQ PO (08:55)
[2024-05-13] MEDS: LISINOPRIL 20MG TABLET 40 MG PO (08:55)
[2024-05-13 09:34] LABS: Magnesium 2.2 mg/dl (1.6-2.3)
[2024-05-13] MEDS: CEFTRIAXONE SODIUM 1 GM in 0.9 % SODIUM CHLORIDE 50 ML IV (12:24)
[2024-05-13 12:40] LABS: Lymphocytes % 3 % (10-50); Monocytes % 3 % (2-9); Neutrophils % 94 % (42-76); Platelet Estimate Normal; RBC Morphology Normal; Total Cells Counted 100
[2024-05-13] MEDS: BUDESONIDE 0.5MG/2ML NEB 0.5 MG IH ×2 (14:26→18:50)
[2024-05-13] MEDS: IBUPROFEN 600 MG TABLET PO (15:56)
--- NOTE | 2024-05-13 16:14 | P.PN_ITS ---
Subjective *Date: 05/13/24 *Time: 16:14 Interval history: Patient did overnight. Improved mentation by morning. Interactive, alert and oriented to self and place. Not completely clear on why she is here. Family at bedside feels she is showing significant improvement. Has had 2 large bowel movements. Afebrile. Medical Exam Vital signs and Labs for Last 24 Hours: Vital Signs Temp Pulse Pulse Resp BP BP Pulse Ox 05/13/24 15:17 97.5 F L 96 H 18 129/60 94 L 05/13/24 15:00 05/13/24 13:00 05/13/24 12:00 110 H 05/13/24 11:28 98.6 F 103 H 20 141/63 H 100 05/13/24 11:10 104 H 05/13/24 11:10 107 H 05/13/24 11:10 94 L 05/13/24 10:41 05/13/24 09:00 05/13/24 08:00 98.1 F 99 H 22 129/57 L 94 L 05/13/24 08:00 05/13/24 07:00 05/13/24 06:25 89 05/13/24 06:25 92 H 05/13/24 06:25 96 05/13/24 06:00 98.2 F 89 20 128/55 L 99 05/13/24 05:00 05/13/24 04:00 88 05/13/24 04:00 98.0 F 88 20 113/52 L 99 05/13/24 03:00 05/13/24 02:00 98.1 F 105 H 24 125/55 L 94 L 05/13/24 01:00 05/13/24 00:00 98 H 05/13/24 00:00 98.3 F 97 H 22 136/57 L 99 05/12/24 23:53 94 H 100 05/12/24 23:00 05/12/24 21:00 05/12/24 20:55 111 H 05/12/24 20:00 98.4 F 109 H 18 139/69 93 L 05/12/24 17:00 110 H 103/57 L 92 L 05/12/24 16:30 110 H 116/51 L 95 O2 Del Method O2 Flow Rate 05/13/24 15:17 Nasal Cannula 1 05/13/24 15:00 Nasal Cannula 2 05/13/24 13:00 Nasal Cannula 2 05/13/24 12:00 05/13/24 11:28 Nasal Cannula, Aerosol Mask 05/13/24 11:10 05/13/24 11:10 05/13/24 11:10 Nasal Cannula 1 05/13/24 10:41 Nasal Cannula 2 05/13/24 09:00 Nasal Cannula 05/13/24 08:00 Nasal Cannula 3 05/13/24 08:00 Nasal Cannula 2 05/13/24 07:00 Nasal Cannula 2 05/13/24 06:25 05/13/24 06:25 05/13/24 06:25 Nasal Cannula 2 05/13/24 06:00 Nasal Cannula 05/13/24 05:00 Nasal Cannula 2 05/13/24 04:00 05/13/24 04:00 Nasal Cannula 3 05/13/24 03:00 Nasal Cannula 3 05/13/24 02:00 Nasal Cannula 05/13/24 01:00 Nasal Cannula 3 05/13/24 00:00 05/13/24 00:00 Nasal Cannula 05/12/24 23:53 Nasal Cannula 3 05/12/24 23:00 Nasal Cannula 3 05/12/24 21:00 Nasal Cannula 3 05/12/24 20:55 05/12/24 20:00 Nasal Cannula 3 05/12/24 17:00 05/12/24 16:30 Intake and Output 05/13/24 05/13/24 05/13/24 07:59 15:59 23:59 Intake Total 730 / 730 Output Total 0 / 200 0 / 200 200 / 200 Balance 0 / 530 730 / 530 -200 / 530 Intake: Intake, Oral Amount 730 / 730 Output: Output, Urine Amount 0 / 200 0 / 200 200 / 200 Other: Number of Unmeasured Voids 1 1 Number of Bowel Movements 1 1 1 Weight 47.446 kg Patient Weight 05/13/24 23:59 Weight 47.446 kg Laboratory Results - last 24 hr 05/12/24 16:01: WBC 19.3 H, RBC 3.90 L, Hgb 11.6 L, Hct 37.1, MCV 95.1, MCH 29.6, MCHC 31.1 L, RDW 16.7, Plt Count 233, MPV 7.6, Neut % (Auto) 90.0 H, Lymph % (Auto) 3.8 L, [place] % (Auto) 5.9, Eos % (Auto) 0.2, Baso % (Auto) 0.2, Neut # (Auto) 17.4 H, Lymph # (Auto) 0.7, [place] # (Auto) 1.1 H, Eos # (Auto) 0.0, Baso # (Auto) 0.0, Total Counted 100, Neutrophils % (Manual) 88 H, Lymphocytes % (Manual) 8 L, Monocytes % (Manual) 4, Platelet Estimate Normal, RBC Morphology Normal, PT 10.4, INR 0.96, APTT 28.0, Sodium 120 L, Potassium 4.9, Chloride 81 L , Carbon Dioxide 25, Anion Gap 18.9 H, BUN 36 H, Creatinine 1.50 H, Estimated Creat Clear 28, Estimated GFR 35 L, Est GFR ( Amer) 42 L, Glucose 140 H, Calcium 8.1 L, Total Bilirubin 0.5, AST 36, ALT 26, Alkaline Phosphatase 227 H, Troponin I < 0.01, Total Protein 7.2, Albumin 3.9, Globulin 3.3 H, Albumin/Globulin Ratio 1.2 05/12/24 16:10: Urine Color Dark yellow, Urine Appearance Clear, Urine pH 5.5, Ur Specific [place] 1.015, Urine Protein Negative, Urine Glucose (UA) Negative, Urine Ketones Trace, Urine Blood Negative, Urine Nitrate Negative, Urine Bilirubin 2+ A, Urine Urobilinogen 1.0, Ur Leukocyte Esterase Trace, Urine RBC None, Urine WBC Occasional, Ur Squamous Epith Cells Occasional, Urine Bacteria Trace 05/12/24 16:49: VBG Lactic Acid 1.7 05/12/24 16:50: VBG pH 7.32, VBG pCO2 49.9, VBG pO2 22.8 L, VBG HCO3 25.2, VBG Total CO2 26.8, VBG O2 Saturation 45.7 L, VBG Base Excess -0.8, VBG Lactic Acid 1.8 05/12/24 18:19: Ammonia < 9 L, SARS-CoV-2 (PCR) Not detected, Influenza A Untype (PCR) Not detected, Influenza Type B (PCR) Not detected 05/12/24 20:40: WBC 12.2 H D, RBC 3.45 L, Hgb 10.5 L, Hct 33.5 L, MCV 97.0, MCH 30.5, MCHC 31.5 L, RDW 16.6, Plt Count 153 D, MPV 7.1 L, Neut % (Auto) 94.2 H, Lymph % (Auto) 2.6 L, [place] % (Auto) 2.7, Eos % (Auto) 0.4, Baso % (Auto) 0.1, Neut # (Auto) 11.5 H, Lymph # (Auto) 0.3 L, [place] # (Auto) 0.3, Eos # (Auto) 0.1, Baso # (Auto) 0.0, Sodium 122 L, Potassium 4.3, Chloride 89 L, Carbon Dioxide 22, Anion Gap 15.3 H, BUN 28 H, Creatinine 0.90 D, Estimated Creat Clear 42, Estimated GFR 63, Est GFR ( Amer) 76 D, Glucose 145 H, Calcium 7.5 L, Total Bilirubin 0.5, AST 34, ALT 25, Alkaline Phosphatase 205 H, Troponin I < 0.01, Total Protein 6.5, Albumin 3.7, Globulin 2.8, Albumin/Globulin Ratio 1.3 05/12/24 23:05: Troponin I < 0.01 05/13/24 06:52: WBC 14.7 H, RBC 3.40 L, Hgb 10.2 L, Hct 32.1 L, MCV 94.4, MCH 30.1, MCHC 31.9, RDW 17.0, Plt Count 184, MPV 8.1, Neut % (Auto) 93.5 H, Lymph % (Auto) 3.1 L, [place] % (Auto) 3.2, Eos % (Auto) 0.0 L, Baso % (Auto) 0.1, Neut # (Auto) 13.7 H, Lymph # (Auto) 0.5 L, [place] # (Auto) 0.5, Eos # (Auto) 0.0, Baso # (Auto) 0.0, Total Counted 100, Neutrophils % (Manual) 94 H, Lymphocytes % (Manual) 3 L, Monocytes % (Manual) 3, Platelet Estimate Normal, RBC Morphology Normal, Sodium 126 L, Potassium 4.0, Chloride 92 L, Carbon Dioxide 29, Anion Gap 9.0, BUN 24 H, Creatinine 0.50 L D, Estimated Creat Clear 42, Estimated GFR 124, Est GFR ( Amer) 150 D, Glucose 112 H D, Calcium 8.1 L, Magnesium 2.2, Total Bilirubin 0.4, AST 34, ALT 21, Alkaline Phosphatase 171 H, Total Protein 6.1 L, Albumin 3.3 L D, Globulin 2.8, Albumin/Globulin Ratio 1.2 I & O for Labs for Last 24 Hours: Intake & Output 05/10/24 05/11/24 05/12/24 05/13/24 23:59 23:59 23:59 23:59 Intake Total 730 / 730 Output Total 0 / 0 200 / 200 Balance 0 / 0 530 / 530 Weight 47.446 kg 47.446 kg Constitutional: Present no acute distress, average body habitus and chronically ill appearing Head: Present atraumatic and normocephalic ENT: Present normal exam Respiratory: Present prolonged expiratory phase, rhonchi, wheezes and normal respiratory effort; Absent crackles Cardiac: Present Reg Rate and Rhythm GI: Present soft and normal bowel sounds; Absent distention or tenderness Extremities: Present normal inspection and full ROM Skin: Present intact; Absent erythema Neuro: Present Grossly Intact, alert, awake, oriented x 3 and moves all extremities Assessment and Plan *Assessment and plan (1) Acute hypoxic respiratory failure: Status: Acute Category: Medical Code(s): J96.01 - Acute respiratory failure with hypoxia (2) Acute exacerbation of chronic obstructive pulmonary disease: Status: Acute Category: Medical Code(s): J44.1 - Chronic obstructive pulmonary disease with (acute) exacerbation (3) Altered mental status: Status: Acute Category: Medical Code(s): R41.82 - Altered mental status, unspecified (4) Acute hyponatremia: Status: Acute Category: Medical Code(s): E87.1 - Hypo-osmolality and hyponatremia (5) Falls frequently: Status: Acute Category: Medical Code(s): R29.6 - Repeated falls (6) Multiple fractures of ribs: Status: Acute Category: Medical Code(s): S22.49XA - Multiple fractures of ribs, unspecified side, initial encounter for closed fracture Plan 63-year-old female who presented to the ER with altered mental status. Recent admission to [facility] with new psych meds initiated. Had a fall recently as well with addition of hydrocodone. Took significant doses in a very short period of time. Discussed case with ER physician, request admission for treatment of her encephalopathy, new oxygen requirement, concern for COPD exacerbation. Agreed to admit for further management. Aggressive bowel regimen initiated over night. Has had 2 large bowel movements. Showing some improvement in mentation. Continues to require inpatient management. Anticipate discharge in the next 24 hours. Problems addressed as follows: Acute hypoxemic respiratory failure secondary to COPD exacerbation Hyponatremia -Continue ceftriaxone 1 g IV daily. Sputum and blood culture still pending. Continue prednisone 40 mg daily -Supplemental oxygen as needed, goal sats greater 90%. Currently on 2 L -DuoNebs every 6 hours scheduled with as needed available -White cell count showing some improvement at 14.7. -Found to be hyponatremic, 122 on presentation. 126 this morning. Kidney function normal BUN 24, creatinine 0.5. -I have ordered CBC, CMP, magnesium for the morning. Encephalopathy -Concerning for toxic versus metabolic. In the setting of hypoxia as well as polypharmacy -Holding opiates/pain medication -Improving today. Tolerating psych meds. Constipation -Continue aggressive bowel regimen. Having bowel movements. Schizophrenia -Recent inpatient admission to [facility]. Started on divalproex 500 mg twice daily and Risperdal 2 mg twice daily. Will continue medications. -Has outpatient follow-up with psychiatry scheduled on Wednesday Hypertension: Stable, continue lisinopril 40 mill grams daily Hyperlipidemia: Continue Lipitor 10 mg daily Tobacco use disorder: Nicotine patch daily as needed Full code Regular diet
[2024-05-13] MEDS: predniSONE 20MG TAB 40 MG PO (16:16)
--- NOTE | 2024-05-13 17:14 | PC.NURSE ---
Pt alert to person and place. Pt on 2L NC, wheezes noted upon auscultation. Room air saturation 88%. 2+ pulses throughout. Pt standby assist to bedside commode pt has has 9 total medium-large bowel movements this shift. Pt worked with PT this shift but refuses to sit in chair or on the side of bed for meals for nursing staff. Pt c/o pain once this shift, pain relieved with ibuprofen 600mg. Pt resting comfortably in bed with no complaints at this time.
--- NOTE | 2024-05-13 17:40 | HMH.PTEV ---
Physical Therapy Evaluation Rehab PT IP Evaluation Start: 05/13/24 07:11 Freq: ONCE Status: Active Protocol: Document 05/13/24 17:34 KOKI (Rec: 05/13/24 17:40 KOKI [id number]) Subjective/History History History This patient had been admitted to [facility] for more than a month . Recently released within the last week. Began to have periods of falling down once discharged to home. Started smoking large amounts of cigarettes after release. Ended up in emergency room given hydrocodone 12 of them that were all taken within 24 hours. Family is unable to care for her and she is terribly constipated. Patient reports she was previously independent with all ADL's/IADL's prior to admittance. She lives at home with her and does not have any stairs to negotiate. Subjective Subjective I just want to go home. New diagnosis of cancer in past 12 No months? Rehab PT IP Eval Objective Appearance Patient Behavior Appropriate,Cooperative Patient Orientation Person,Place,Birthday Difficulty following instructions none Speech Pattern Clear,Appropriate Ambulation Patient Able to Ambulate Yes Balance Ability to Arise Able, w/o using arms Sitting Balance Leans or slides in chair Standing Balance Steady, wide stance Dynamic Sitting Balance Ability Normal Dynamic Standing Balance Ability Good Transfers Bed Transfer Ability Independent Sit to Stand Bed Transfer Ability Independent ROM All Extremities PT ROM Status WFL MMT All Extremities PT MMT WFL Rehab PT IP prob,goals,plan Problems Date of Evaluation: 05/13/24 Discharge Plan PT Discharge Plan PT suggests patient is a good candidate for discharge back to home with caregiver. PT suggests patient continues with home health rehab services. Eval Complexity Eval Charge Codes 73621 - High Complexity PHYSICIAN CERTIFICATION: I certify the specified therapy services for Marcela Mccall are required, authorized, and reviewed every 30 days.
[2024-05-14] VITALS: BP 113/60; PULSE 100; PULSE 96; RESP 24; TEMP 36.9; O2SAT 91
--- NOTE | 2024-05-14 00:25 | PC.NURSE ---
Patient refusing to wear SCUDs. Provided education to patient as to why she should have them on and that we can take them off for frequent breaks. Patient still declined to wear them and states they hurt. Contacted hospitalist at 0024 due to not patient not having any other VTE prophylaxis. CHANDLER Burris states to make note in patient chart and he will look thru her chart and determine if further orders are needed for VTE prophylaxis.
[2024-05-14 04:00] VITALS: BP 118/56; PULSE 79; RESP 22; TEMP 36.8; O2SAT 98; BMI 19.7
--- NOTE | 2024-05-14 04:37 | PC.NURSE ---
Patient alert and oriented x4 throughout shift. Tolerating 3L NC well with saturations >90%. Sinus tachycardia on tele. Patient refused to wear SCUDs and order was changed to Lovenox to begin in the AM. Patient has gotten up to bedside commode without assistance or calling for help, so bed alarm was turned on for patient safety at approximately 0400. Patient has not expressed any needs or concerns this shift. Call light within reach.
[2024-05-14 06:20] VITALS: PULSE 96; PULSE 97; O2SAT 100
[2024-05-14] MEDS: BUDESONIDE 0.5MG/2ML NEB 0.5 MG IH (06:23)
[2024-05-14] MEDS: IPRATROPIUM/ALBUTEROL 3 ML NEB IH ×2 (06:23→11:18)
--- NOTE | 2024-05-14 07:19 | EXP.DC.SUM ---
General Admission date:: 05/12/24 Discharge date: 05/14/24 HPI HPI HPI: This patient had been admitted to [facility] for more than a month. Recently released within the last week. Began to have periods of falling down. Started smoking large amounts of cigarettes after release. Ended up in emergency room given hydrocodone 12 of them that were all taken within 24 hours. Family is unable to care for her and she is terribly constipated Hospital Course Hospital Course Hospital Course: 63-year-old female who presented to the ER with altered mental status. Recent admission to [facility] with new psych meds initiated. Had a fall recently as well with addition of hydrocodone. Took significant doses in a very short period of time. Discussed case with ER physician, request admission for treatment of her encephalopathy, new oxygen requirement, concern for COPD exacerbation. Agreed to admit for further management. Aggressive bowel regimen initiated over night. Has had 2 large bowel movements. Showing some improvement in mentation. Continues to require inpatient management. Anticipate discharge in the next 24 hours. Problems addressed as follows: Acute hypoxemic respiratory failure secondary to COPD exacerbation Hyponatremia -Initiated on empiric antibiotics for COPD exacerbation with ceftriaxone 1 g daily. Will transition to cefdinir 300 mg twice daily to complete 5-day course. Continue prednisone 40 mg daily to complete 5 days of steroids. Patient weaned to room air by day of discharge. No oxygen requirement. DuoNebs sent, nebulizer ordered through [facility]. Trelegy inhaler started during admission. Would benefit from continuing daily maintenance inhaler therapy with nebs as needed every 4-6 hours. Seeing improvement in her electrolytes, sodium improved to 126. Mentation appears to be back to baseline. Kidney function normal. Stable to discharge home. Would benefit from repeat labs follow-up with PCP including CBC, CMP, magnesium. Encephalopathy -Concerning for toxic versus metabolic. In the setting of hypoxia as well as polypharmacy. Improved with holding pain medication. Continue psychiatric medications. Improved to baseline mentation by day of discharge. Constipation: Multiple bowel movements during admission. Patient feeling better. Continue bowel regimen at discharge. Schizophrenia -Recent inpatient admission to [facility] psychiatric facility. Started on divalproex 500 mg twice daily and Risperdal 2 mg twice daily. Will continue medications. Has outpatient follow-up with psychiatry scheduled on Wednesday Hypertension: Stable, continue lisinopril 40 mill grams daily Hyperlipidemia: Continue Lipitor 10 mg daily Tobacco use disorder: Nicotine patch daily as needed Total time spent on discharge 32 minutes in counseling, documentation, chart review, and direct care with patient. Exam Data for Last 24 hours Vital signs and Labs for Last 24 Hours: Temp Pulse Resp BP Pulse Ox O2 Del Method O2 Flow Rate 98.3 F 97 H 22 118/56 L 100 Nasal Cannula 1 05/14/24 04:00 05/14/24 06:20 05/14/24 04:00 05/14/24 04:00 05/14/24 06:20 05/14/24 06:44 05/14/24 06:44 FiO2 32 05/13/24 19:45 Laboratory Results - last 24 hr 05/13/24 06:52: WBC 14.7 H, RBC 3.40 L, Hgb 10.2 L, Hct 32.1 L, MCV 94.4, MCH 30.1, MCHC 31.9, RDW 17.0, Plt Count 184, MPV 8.1, Neut % (Auto) 93.5 H, Lymph % (Auto) 3.1 L, [place] % (Auto) 3.2, Eos % (Auto) 0.0 L, Baso % (Auto) 0.1, Neut # (Auto) 13.7 H, Lymph # (Auto) 0.5 L, [place] # (Auto) 0.5, Eos # (Auto) 0.0, Baso # (Auto) 0.0, Total Counted 100, Neutrophils % (Manual) 94 H, Lymphocytes % (Manual) 3 L, Monocytes % (Manual) 3, Platelet Estimate Normal, RBC Morphology Normal, Sodium 126 L, Potassium 4.0, Chloride 92 L, Carbon Dioxide 29, Anion Gap 9.0, BUN 24 H, Creatinine 0.50 L D, Estimated Creat Clear 42, Estimated GFR 124, Est GFR ( Amer) 150 D, Glucose 112 H D, Calcium 8.1 L, Magnesium 2.2, Total Bilirubin 0.4, AST 34, ALT 21, Alkaline Phosphatase 171 H, Total Protein 6.1 L, Albumin 3.3 L D, Globulin 2.8, Albumin/Globulin Ratio 1.2 I & O for Last 24 hours: Intake & Output 05/11/24 05/12/24 05/13/24 05/14/24 23:59 23:59 23:59 23:59 Intake Total 1170 / 1170 Output Total 0 / 0 200 / 200 0 / 0 Balance 0 / 0 970 / 970 0 / 0 Weight 47.446 kg 47.446 kg 47.446 kg Microbiology Reports for the Last 24 Hours: Microbiology 05/12/24 16:10 Blood Blood Culture - Preliminary NO GROWTH AFTER 24 HOURS 05/12/24 16:00 Blood Blood Culture - Preliminary NO GROWTH AFTER 24 HOURS Constitutional Constitutional: no acute distress, thin and chronically ill appearing *Routine HEENT Exam Head: Present normocephalic Eye: Present EOMI and PERRL ENT: Present mucous membranes moist *Routine Neck Exam Neck: Present supple; Absent lymphadenopathy *Routine Respiratory Exam Respiratory: Present prolonged expiratory phase, wheezes and normal respiratory effort; Absent rhonchi or crackles *Routine Cardiovascular Exam Cardiovascular: Present RRR *Routine Abdominal Exam Abdominal: Present soft and normoactive bowel sounds; Absent tenderness *Routine Rectal Exam Patient deferred: visual exam *Routine Exam Patient deferred: external exam *Routine Extremities Exam Extremities: Absent cyanosis, clubbing or edema *Routine Skin Exam Skin: Present warm; Absent rash *Routine Neurological Exam Neurological: Present alert, oriented X3 and moving all extremities; Absent altered mental status Routine Psychiatric Exam Psychiatric: Present normal affect and normal thought process Results Data Completed and Pending Labs on day of discharge: Labs from last 24 hours 05/13/24 06:52 WBC 14.7 H RBC 3.40 L Hgb 10.2 L Hct 32.1 L MCV 94.4 MCH 30.1 MCHC 31.9 RDW 17.0 Plt Count 184 MPV 8.1 Neut % (Auto) 93.5 H Lymph % (Auto) 3.1 L [place] % (Auto) 3.2 Eos % (Auto) 0.0 L Baso % (Auto) 0.1 Neut # (Auto) 13.7 H Lymph # (Auto) 0.5 L [place] # (Auto) 0.5 Eos # (Auto) 0.0 Baso # (Auto) 0.0 Total Counted 100 Neutrophils % (Manual) 94 H Lymphocytes % (Manual) 3 L Monocytes % (Manual) 3 Platelet Estimate Normal RBC Morphology Normal Sodium 126 L Potassium 4.0 Chloride 92 L Carbon Dioxide 29 Anion Gap 9.0 BUN 24 H Creatinine 0.50 L D Estimated Creat Clear 42 Estimated GFR 124 Est GFR ( Amer) 150 D Glucose 112 H D Calcium 8.1 L Magnesium 2.2 Total Bilirubin 0.4 AST 34 ALT 21 Alkaline Phosphatase 171 H Total Protein 6.1 L Albumin 3.3 L D Globulin 2.8 Albumin/Globulin Ratio 1.2 Preliminary micro results at discharge 05/12/24 16:10 Blood Culture - Preliminary Blood NO GROWTH AFTER 24 HOURS 05/12/24 16:00 Blood Culture - Preliminary Blood NO GROWTH AFTER 24 HOURS DS: Diagnosis Discharge Diagnosis (1) Acute hypoxic respiratory failure: Status: Acute Code(s): J96.01 - Acute respiratory failure with hypoxia (2) Acute exacerbation of chronic obstructive pulmonary disease: Status: Acute Code(s): J44.1 - Chronic obstructive pulmonary disease with (acute) exacerbation (3) Altered mental status: Status: Acute Code(s): R41.82 - Altered mental status, unspecified (4) Acute hyponatremia: Status: Acute Code(s): E87.1 - Hypo-osmolality and hyponatremia (5) Falls frequently: Status: Acute Code(s): R29.6 - Repeated falls (6) Multiple fractures of ribs: Status: Acute Code(s): S22.49XA - Multiple fractures of ribs, unspecified side, initial encounter for closed fracture (7) Constipation: Status: Acute Code(s): K59.00 - Constipation, unspecified (8) Schizophrenia: Status: Acute Code(s): F20.9 - Schizophrenia, unspecified Meds Home Medications and Allergies Home Medications Medication Instructions Recorded Confirmed Type atorvastatin 10 mg tablet 10 mg PO DAILY 05/12/24 05/12/24 History divalproex 500 mg tablet,delayed 500 mg PO BID 05/12/24 05/12/24 History release lisinopril 40 mg tablet 40 mg PO DAILY 05/12/24 05/12/24 History omeprazole 20 mg capsule,delayed 20 mg PO DAILY 05/12/24 05/12/24 History release potassium chloride 10 mEq 10 meq PO DAILY 05/12/24 05/12/24 History tablet,extended release risperidone 2 mg tablet (Risperdal) 2 mg PO BID 05/12/24 05/12/24 History tramadol 50 mg tablet 50 mg PO BIDP PRN Pain 05/12/24 05/13/24 History albuterol sulfate 90 mcg/actuation 2 inh inhalation Q6HP PRN SOA 05/13/24 05/13/24 History aerosol inhaler cefdinir 300 mg capsule 300 mg PO BID 4 days #8 caps 05/14/24 Rx fluticasone fur. 100 mcg-umeclid 1 inh inhalation DAILY 30 days #60 05/14/24 Rx 62.5 mcg-vilant 25 mcg ea inhalat.powder (Trelegy Ellipta) ibuprofen 600 mg tablet 600 mg PO Q6HP PRN Fever Or Mild 05/14/24 Rx Pain (1-3) #0 tabs ipratropium 0.5 mg-albuterol 3 mg 3 ml inhalation Q6HP PRN shortness 05/14/24 Rx (2.5 mg base)/3 mL nebulization of breath 30 days #180 mL soln nicotine 21 mg/24 hr daily 21 mg transdermal DAILYP PRN 05/14/24 Rx transdermal patch Nicotine Cravings 28 days #28 ea prednisone 20 mg tablet 40 mg (2 x 20 mg) PO Q24H 4 days 05/14/24 Rx #8 tabs sennosides 8.6 mg-docusate sodium 1 tab-cap PO HS #30 tabs 05/14/24 Rx 50 mg tablet (Laxative Stool Softener With Senna) New Prescriptions to Start Prescriptions: Zay Quezada [id number] [Trelegy Ellipta] Zay Rodriguez ipratropium-albuterol Zay Rodriguez nicotine Zay Rodriguez prednisone Zay Rodriguez sennosides-docusate sodium [Lax Stool Softener With Senna] Zay Rodriguez Allergies Allergy/AdvReac Type Severity Reaction Status Date / Time No Known Allergies Allergy Verified 05/12/24 17:21 Discharge Plan Disposition Patient Disposition: Home Health Service Condition: Fair Discharge Order Discharge Orders: Discharge Order (Routine); Ordered 05/14/24 Ordered By: Zay Rodriguez Follow up Plan Follow up with: Hitesh Esparza DO [Primary Care Provider] - Enter time for follow up (please call for appointment) Prescriptions/Medication Reconciliation: New prednisone 20 mg Tablet 40 mg PO Q24H 4 Days Qty: 8 0RF nicotine 21 mg/24 hr Patch 24 Hour 21 mg transdermal DAILYP PRN (Reason: Nicotine Cravings) 28 Days Qty: 28 2RF ibuprofen 600 mg Tablet 600 mg PO Q6HP PRN (Reason: Fever Or Mild Pain (1-3)) Qty: 0 0RF Trelegy Ellipta 100-62.5-25 mcg Blister With Device 1 inh inhalation DAILY 30 Days Qty: 60 0RF ipratropium-albuterol 0.5 mg-3 mg(2.5 mg base)/3 mL Solution For Nebulization 3 ml inhalation Q6HP PRN (Reason: shortness of breath) 30 Days Qty: 180 0RF cefdinir 300 mg capsule 300 mg PO BID 4 Days Qty: 8 0RF sennosides-docusate sodium [Lax Stool Softener With Senna] 8.6-50 mg tablet 1 tab-cap PO HS Qty: 30 0RF Continued atorvastatin 10 mg Tablet 10 mg PO DAILY potassium chloride 10 mEq Tablet Extended Release 10 meq PO DAILY divalproex 500 mg Tablet,Delayed Release (Dr/Ec) 500 mg PO BID tramadol 50 mg Tablet 50 mg PO BIDP PRN (Reason: Pain) risperidone [Risperdal] 2 mg Tablet 2 mg PO BID omeprazole 20 mg Capsule,Delayed Release(Dr/Ec) 20 mg PO DAILY lisinopril 40 mg Tablet 40 mg PO DAILY albuterol sulfate 90 mcg/actuation HFA aerosol inhaler 2 inh INHALATION Q6HP PRN (Reason: SOA) Other Ambulatory Orders: Home Medical Equipment (Routine) Location: None Selected Ordered By: Zay Rodriguez Problem Reconciliation Problems Reviewed?: Yes Patient Discharge Instructions ACTIVITY: Continue current activity DIET: continue same diet Patient Instructions: DI for Chronic Obstructive Pulmonary Disease, DI for Hyponatremia, DI for Hypoxia Providers Primary Care Provider: Hitesh Esparza Admit Provider: Zay Rodriguez Attending Provider: Zay Rodriguez
[2024-05-14 08:00] VITALS: BP 161/71; PULSE 100; PULSE 103; RESP 20; TEMP 36.8; O2SAT 94
[2024-05-14] MEDS: ATORVASTATIN 10MG TABLET 10 MG PO (08:22)
[2024-05-14] MEDS: DIVALPROEX 500MG (Delayed-Release) TABLET 500 MG PO (08:22)
[2024-05-14] MEDS: POTASSIUM CHLORIDE 10MEQ TABLET.ER 10 MEQ PO (08:22)
[2024-05-14] MEDS: DOCUSATE SODIUM 100 MG CAPSULE PO (08:22)
[2024-05-14] MEDS: PANTOPRAZOLE 40MG TABLET 40 MG PO (08:22)
[2024-05-14] MEDS: risperiDONE 1MG TABLET 2 MG PO (08:22)
[2024-05-14] MEDS: LISINOPRIL 20MG TABLET 40 MG PO (08:22)
[2024-05-14] MEDS: predniSONE 20MG TAB 40 MG PO (08:25)
[2024-05-14] MEDS: ENOXAPARIN 40MG/0.4ML SYRINGE 40 MG SQ (08:25)
[2024-05-14 08:43] LABS: Basophils % 0.1 % (0.1-2.0); Hematocrit 29.4 % (37.0-47.0); Hemoglobin 9.5 g/dL (12.2-16.2); Lymphocytes # 0.8 K/mm3 (0.7-4.5); Lymphocytes % 8.2 % (10-50); Mean Corpuscular HGB Conc 32.3 g/dL (31.8-35.4); Mean Corpuscular Hemoglobin 30.5 pg (27.0-31.2); Mean Corpuscular Volume 94.4 fl (81-99); Mean Platelet Volume 7.5 fl (7.4-10.4); Monocytes # 0.5 K/mm3 (0.1-1.0); Monocytes % 4.6 % (1.7-9.3); Neutrophils % 87.1 % (37.0-80.0); Platelet Count 199 K/mm3 (142-424); Red Blood Count 3.11 M/mm3 (4.20-5.40); White Blood Count 10.3 K/mm3 (4.8-10.8)
[2024-05-14 08:44] LABS: MANUAL DIFFERENTIAL MANUAL DIFFERENTIAL (MANUAL DIFF)
[2024-05-14 08:47] LABS: Chloride 90 mmol/L (98-107); Sodium 126 mmol/L (136-145)
[2024-05-14 08:48] LABS: Potassium 3.9 mmoL/L (3.5-5.1)
[2024-05-14 08:51] LABS: Anion Gap 9.9 mEq/L (5-15); Blood Urea Nitrogen 17 mg/dl (7-17); Calcium 8.5 mg/dl (8.4-10.2); Carbon Dioxide 30 mmol/L (22.0-30.0); Creatinine Clearance Estimated 42 mL/min (50-200); Estimated Glomerular Filt Rate 124 ml/min (>60); GFR (African American) 150 ML/MIN (>60); Glucose 105 mg/dl (74-100); Magnesium 1.8 mg/dl (1.6-2.3)
[2024-05-14] MEDS: IBUPROFEN 600 MG TABLET PO (09:02)
[2024-05-14] MEDS: FLUTICASONE/UMECLIDIN/VILANTER 100/62.5/25MCG INHALER 1 PUFF IH (10:12)
[2024-05-14 10:14] LABS: Lymphocytes % 12 % (10-50); Monocytes % 6 % (2-9); Neutrophils % 82 % (42-76); RBC Morphology Normal; Total Cells Counted 100
[2024-05-14 10:15] LABS: Platelet Estimate Normal
[2024-05-14 11:18] VITALS: PULSE 67; PULSE 73; O2SAT 93
--- NOTE | 2024-05-14 11:20 | PC.NURSE ---
Addendum entered by Stephanie Gauthier RN 05/14/24 11:48: o2 saturation after ambulation 90% Original Note: o2 saturation at rest 94%
[2024-05-14] MEDS: CEFTRIAXONE SODIUM 1 GM in 0.9 % SODIUM CHLORIDE 50 ML IV (11:22)
--- NOTE | 2024-05-15 14:31 | CARE MANAGER ---
Called and spoke with patient regarding recent discharge. Patient stated that she is doing ok, just in a lot of pain. She has not picked up her medications and therefore has missed 2 doses of antibiotics as well as other medications prescribed at discharge. She refused home health services but verbally agreed to obtaining a nebulizer machine through [facility]. No other concerns voiced at time of call.
== END 2024-05-14 14:07 | disposition home health service (06) | DRG 189 ==
LOC: ER 19:22 → 2ND 20:05
PROVIDERS: Nurse Practitioner Family; Admitting Provider Internal Medicine Adolescent Medicine; Emergency Provider Student in an Organized Health Care Education/Training Program; PCP Internal Medicine; Visit Provider Internal Medicine Adolescent Medicine
DX: J96.01 Acute respiratory failure with hypoxia (principal); J44.1 Chronic obstructive pulmonary disease with (acute) exacerbation; G93.40 Encephalopathy, unspecified; E87.1 Hypo-osmolality and hyponatremia; K59.00 Constipation, unspecified; F20.9 Schizophrenia, unspecified; I10 Essential (primary) hypertension; Z72.0 Tobacco use; R29.6 Repeated falls
CPT/HCPCS: 36415; 70450; 70496; 70498; 71275; 72125; 72128; 72131; 74174; 80048; 80053; 81001; 82140; 82803; 83605; 83735; 84484; 85007; 85025; 85610; 85730; 87040; 87636; 93005; 94640; 97163; 99291; J0696; J1650; J2919; J7120; J7620; Q9967